=== PATIENT | female | born 1960 | race Caucasian/White ===

== ENCOUNTER 2020-10-25 05:18 | Observation (INO) | payer OTHER ==
[~2020-10-25] VITALS: Ht 172.7 cm; Wt 110.7 kg
[~2020-10-25 05:18] MED LIST: ADVAIR 100-501 EACH INH; AMLODIPINE-BEN1 EAC1 PO; ANTIVERT 25MG T25 MG PO; ATORVASTATIN CA20 MG PO; BASAGLAR K100 UNIT/1 SQ; BENADRYL 25MG C25 MG PO; BENTYL 20MG TAB20 MG PO; CLEOCIN HCL150 MG PO; CYANOCOBAL1000 MCG/1 INJ; CYCLOBENZAPRINE10 MG PO; DOLOBID 500 MG500 MG PO; ECOTRIN81 MG PO; FLEXERIL 10 MG10 MG PO; GABAPENTIN300 MG PO; GENTAMICIN 0.33.5 GM OU; GLUCOPHAGE1000 MG PO; HUMALOG MI100 UNIT/3 SQ; HYDROCODON-ACE1 EAC2 PO; HYDROCODON-ACE1 EAC4 PO; IMDUR ER TAB 3030 MG PO; IPRAT-ALBUT 0.5-3 ML INH; K-DUR TAB 20 M20 MEQ PO; KEFLEX CAP 500500 MG PO; KEFLEX500 MG PO; LASIX80 MG PO; LEVAQUIN TAB 5500 MG PO; LEVAQUIN500 MG PO; LEXAPRO10 MG PO; LOTENSIN40 MG PO; LYRICA100 MG PO; MACROBID 100 M100 M1 PO; MACROBID 100 M100 MG PO; MOTEGRITY2 MG PO; NEURONTIN 100100 MG PO; NEURONTIN 400400 MG PO; NORCO 10-325 T1 EACH PO; NORCO 5-325 TA1 EACH PO; OMEPRAZOLE40 MG PO; OMNICEF 300 MG300 MG PO; PHENERGAN 25 MG25 M1 PO; PHENERGAN25 MG PR; PLAVIX 75 MG TA75 MG PO; PREDNISONE 50 M50 MG PO; PREDNISONE20 MG PO; PROTONIX40 MG PO; PYRIDIUM200 MG PO; REQUIP XL2 MG PO; ROBAXIN-750750 MG PO; TRAZODONE HCL50 MG PO; VICTOZA 3-0.6 MG/0.1 SQ; XANAX1 MG PO; ZANTAC150 MG PO; ZOFRAN ODT 4 MG4 MG PO; ZOFRAN4 MG PO
[2020-10-25 05:37] LABS: RED BLOOD COUNT 3.75 M/UL (4.00-5.10); WHITE BLOOD COUNT 7.6 K/UL (4.5-11.0)
[2020-10-25 06:05] LABS: BUN/CREATININE RATIO 14 (0-10)
[2020-10-26 06:38] LABS: RED BLOOD COUNT 3.72 M/UL (4.00-5.10); WHITE BLOOD COUNT 8.2 K/UL (4.5-11.0)
[2020-10-26 07:08] LABS: BUN/CREATININE RATIO 10 (0-10)
[2020-10-26] MEDS ORDERED: PROTONIX 40 MG40 M1 PO (10:52)
== END 2020-10-26 13:53 | disposition home or self-care (01) ==
LOC: ER1 05:18 → CDU 06:44 → MED SURG 4 14:03
PROVIDERS: Family Medicine; ADMIT Internal Medicine
PROC: 4A023N7 Measurement of Cardiac Sampling and Pressure, Left Heart, Percutaneous Approach (ICD-10-PCS; principal; 2020-10-25)
PROC: B2111ZZ Fluoroscopy of Multiple Coronary Arteries using Low Osmolar Contrast (ICD-10-PCS; 2020-10-25)
PROC: B2151ZZ Fluoroscopy of Left Heart using Low Osmolar Contrast (ICD-10-PCS; 2020-10-25)
DX: R07.89 Other chest pain (principal); I25.2 Old myocardial infarction; I10 Essential (primary) hypertension; E78.5 Hyperlipidemia, unspecified; E11.9 Type 2 diabetes mellitus without complications; E66.01 Morbid (severe) obesity due to excess calories; I25.10 Atherosclerotic heart disease of native coronary artery without angina pectoris; E04.1 Nontoxic single thyroid nodule; Z95.5 Presence of coronary angioplasty implant and graft; Z88.5 Allergy status to narcotic agent; Z88.1 Allergy status to other antibiotic agents; Z20.828 Contact with and (suspected) exposure to other viral communicable diseases
CPT/HCPCS: ECHO; 36415; 71045; 71275; 78452; 80048; 80053; 82550; 82553; 82962; 83690; 83874; 84484; 85025; 85379; 85610; 87635; 93005; 93306; 96374; 99152; 99153; 99285; A9502; C1760; C1769; G0378; J1170; J1644; J2405; J2785; Q9967; U0003

== ENCOUNTER 2021-01-06 20:46 | Emergency (ER) | payer OTHER ==
[~2021-01-06 20:46] MED LIST changes: +PROTONIX 40 MG40 M1 PO
[2021-01-06 21:31] LABS: HEMOGLOBIN 12.7 gm/dl (12.3-15.3); RED BLOOD COUNT 4.12 M/UL (4.00-5.10); WHITE BLOOD COUNT 8.2 K/UL (4.5-11.0)
[2021-01-06 21:55] LABS: BUN/CREATININE RATIO 17 (0-10)
[2021-01-07] MEDS ORDERED: ZOFRAN4 MG PO (00:41)
[2021-01-07] MEDS ORDERED: OMNICEF 300 MG300 MG PO (01:03)
== END 2021-01-07 03:00 | disposition home or self-care (01) ==
LOC: ER1 20:46
PROVIDERS: Physician Assistant
DX: R07.89 Other chest pain (principal); N39.0 Urinary tract infection, site not specified; E11.9 Type 2 diabetes mellitus without complications; J45.909 Unspecified asthma, uncomplicated; Z86.73 Personal history of transient ischemic attack (TIA), and cerebral infarction without residual deficits; Z88.5 Allergy status to narcotic agent; Z88.1 Allergy status to other antibiotic agents; Z86.16 Personal history of COVID-19
CPT/HCPCS: 71045; 80053; 81001; 82550; 82553; 83874; 84484; 85025; 85379; 87086; 93005; 99285; Q9967

== ENCOUNTER 2021-03-11 00:40 | Emergency (ER) | payer OTHER | END 2021-03-11 03:21 | disposition home or self-care (01) | LOC: ER1 00:40 | DX: S63.501A Unspecified sprain of right wrist, initial encounter (principal); S43.401A Unspecified sprain of right shoulder joint, initial encounter; E11.9 Type 2 diabetes mellitus without complications; J45.909 Unspecified asthma, uncomplicated; Z79.4 Long term (current) use of insulin; Z88.5 Allergy status to narcotic agent; Z88.8 Allergy status to other drugs, medicaments and biological substances; W19.XXXA Unspecified fall, initial encounter; Y92.009 Unspecified place in unspecified non-institutional (private) residence as the place of occurrence of the external cause | CPT/HCPCS: 29125; 73060; 73110; 99283 ==

== ENCOUNTER 2021-05-04 11:45 | Inpatient (IN) | payer OTHER ==
[~2021-05-04] VITALS: Ht 172.7 cm; Wt 103.9 kg
[2021-05-04 12:26] LABS: HEMOGLOBIN 12.5 gm/dl (12.3-15.3); RED BLOOD COUNT 3.91 M/UL (4.00-5.10); WHITE BLOOD COUNT 7.4 K/UL (4.5-11.0)
[2021-05-04 13:00] LABS: BUN/CREATININE RATIO 19 (0-10)
[2021-05-04] MEDS ORDERED: HYDROXYZINE HCL25 MG PO (17:30)
[2021-05-05 04:25] LABS: HEMOGLOBIN 12.1 gm/dl (12.3-15.3); RED BLOOD COUNT 3.8 M/UL (4.00-5.10); WHITE BLOOD COUNT 7.6 K/UL (4.5-11.0)
[2021-05-05 04:44] LABS: BUN/CREATININE RATIO 19 (0-10)
[2021-05-05 07:49] LABS: ACINETOBACTER BAUMANNII Not Detected (Negative); CANDIDA ALBICANS Not Detected (Negative); CANDIDA KRUSEI Not Detected (Negative); CANDIDA TROPICALIS Not Detected (Negative); ENTEROCOCCUS Not Detected (Negative); ESCHERICHIA COLI Not Detected (Negative); HAEMOPHILUS INFLUENZAE Not Detected (Negative); KLEBSIELLA OXYTOCA Not Detected (Negative); KLEBSIELLA PNEUMONIAE Not Detected (Negative); KPC-CARBAPENEM-RESISTANCE GENE Not Detected (Negative); PROTEUS Not Detected (Negative); PSEUDOMONAS AERUGINOSA Not Detected (Negative); SERRATIA MARCESANS Not Detected (Negative); STAPHYLOCOCCUS AUREUS Not Detected (Negative); STREP AGALACTIAE (GROUP B) Not Detected (Negative); STREP PYOGENES (GROUP A) Not Detected (Negative); STREPTOCOCCUS Not Detected (Negative); vanA/B (VANCOMYCIN RESIST GENE Not Detected (Negative)
[2021-05-05 10:31] LABS: STAPHYLOCOCCUS DETECTED (Negative); mecA (METHICILLIN RESIST GENE DETECTED (Negative)
[2021-05-06 05:49] LABS: HEMOGLOBIN 12.4 gm/dl (12.3-15.3); RED BLOOD COUNT 3.93 M/UL (4.00-5.10); WHITE BLOOD COUNT 6.9 K/UL (4.5-11.0)
[2021-05-06 06:08] LABS: BUN/CREATININE RATIO 16 (0-10)
[2021-05-07 05:25] LABS: BUN/CREATININE RATIO 18 (0-10)
[2021-05-07] MEDS ORDERED: IPRAT-ALBUT 0.5-3 ML INH (16:57)
== END 2021-05-07 18:25 | disposition home or self-care (01) | DRG 312 ==
LOC: ER1 11:45 → CDU 14:16 → M/S 17:27
PROVIDERS: Emergency Medicine; Physician Assistant Medical; ADMIT Internal Medicine
PROC: B24BZZ4 Ultrasonography of Heart with Aorta, Transesophageal (ICD-10-PCS; principal; 2021-05-04)
DX: R55 Syncope and collapse (principal); I25.10 Atherosclerotic heart disease of native coronary artery without angina pectoris; I10 Essential (primary) hypertension; F43.10 Post-traumatic stress disorder, unspecified; F41.9 Anxiety disorder, unspecified; Z20.822 Contact with and (suspected) exposure to COVID-19; F32.9 Major depressive disorder, single episode, unspecified; R27.0 Ataxia, unspecified; J45.909 Unspecified asthma, uncomplicated; G25.81 Restless legs syndrome; E78.5 Hyperlipidemia, unspecified; Z96.653 Presence of artificial knee joint, bilateral; I08.1 Rheumatic disorders of both mitral and tricuspid valves; E11.42 Type 2 diabetes mellitus with diabetic polyneuropathy; Z86.73 Personal history of transient ischemic attack (TIA), and cerebral infarction without residual deficits; Z79.01 Long term (current) use of anticoagulants; Z79.82 Long term (current) use of aspirin; Z95.5 Presence of coronary angioplasty implant and graft; Z90.710 Acquired absence of both cervix and uterus; Z88.6 Allergy status to analgesic agent; Z88.1 Allergy status to other antibiotic agents; Z88.8 Allergy status to other drugs, medicaments and biological substances; Z82.49 Family history of ischemic heart disease and other diseases of the circulatory system; Z80.0 Family history of malignant neoplasm of digestive organs; Z79.4 Long term (current) use of insulin; Z90.49 Acquired absence of other specified parts of digestive tract
CPT/HCPCS: ECHO; 36415; 36600; 70450; 70551; 71045; 80048; 80053; 80307; 81001; 82550; 82553; 82803; 82962; 83605; 83690; 83735; 83874; 83880; 84439; 84443; 84484; 85025; 85027; 85730; 87040; 87077; 87150; 87186; 93005; 93270; 93306; 93880; 96374; 96375; 97116-GP-CQ; 97162; 99285; G0378; J2550; J2765; J7030; U0002

== ENCOUNTER 2021-08-06 11:45 | Emergency (ER) | payer OTHER ==
[~2021-08-06 11:45] MED LIST changes: +HYDROXYZINE HCL25 MG PO
[2021-08-06 13:14] LABS: RED BLOOD COUNT 4.04 M/UL (4.00-5.10)
[2021-08-06 13:38] LABS: BUN/CREATININE RATIO 13 (0-10)
[2021-08-06] MEDS ORDERED: FLOMAX 0.4 MG0.4 MG PO (16:27)
[2021-08-06] MEDS ORDERED: MACROBID 100 M100 M1 PO (16:27)
== END 2021-08-06 17:19 | disposition home or self-care (01) ==
LOC: ER1 11:45
PROVIDERS: Nurse Practitioner
DX: N20.0 Calculus of kidney (principal); N39.0 Urinary tract infection, site not specified; Z20.822 Contact with and (suspected) exposure to COVID-19
CPT/HCPCS: 80053; 81001; 82550; 82553; 83690; 83874; 84484; 85025; 87077; 87086; 87186; 93005; 96374; 96375; 99284; J0780; J1100; J1200; J7030; Q9965; U0002

== ENCOUNTER 2021-08-23 22:18 | Emergency (ER) | payer OTHER ==
[~2021-08-23 22:18] MED LIST changes: +FLOMAX 0.4 MG0.4 MG PO
[2021-08-23 22:52] LABS: HEMOGLOBIN 13.6 gm/dl (12.3-15.3); RED BLOOD COUNT 4.23 M/UL (4.00-5.10); WHITE BLOOD COUNT 7.4 K/UL (4.5-11.0)
[2021-08-24 00:16] LABS: BUN/CREATININE RATIO 12 (0-10)
[2021-08-24] MEDS ORDERED: OMNICEF 300 MG300 MG PO (02:33)
== END 2021-08-24 03:30 | disposition home or self-care (01) ==
LOC: ER1 22:18
PROVIDERS: Physician Assistant
DX: N39.0 Urinary tract infection, site not specified (principal); R51.9 Headache, unspecified; R20.2 Paresthesia of skin; I25.2 Old myocardial infarction; E78.5 Hyperlipidemia, unspecified; I10 Essential (primary) hypertension; E11.43 Type 2 diabetes mellitus with diabetic autonomic (poly)neuropathy; K31.84 Gastroparesis; I25.10 Atherosclerotic heart disease of native coronary artery without angina pectoris; Z86.73 Personal history of transient ischemic attack (TIA), and cerebral infarction without residual deficits; Z95.5 Presence of coronary angioplasty implant and graft; Z90.710 Acquired absence of both cervix and uterus; Z90.49 Acquired absence of other specified parts of digestive tract; Z88.5 Allergy status to narcotic agent; Z88.6 Allergy status to analgesic agent; Z88.1 Allergy status to other antibiotic agents
CPT/HCPCS: 70450; 71045; 80053; 81001; 82550; 82553; 83690; 83735; 83874; 83880; 84484; 85025; 85610; 85730; 87077; 87086; 87186; 93005; 96374; 99284; J0696; Q9967

== ENCOUNTER 2022-06-17 15:39 | Emergency (ER) | payer OTHER ==
[~2022-06-17 15:39] MED LIST changes: +DOXYCYCLINE HY100 MG PO
[2022-06-17 16:55] LABS: HEMOGLOBIN 13.6 gm/dl (12.3-15.3); RED BLOOD COUNT 4.31 M/UL (4.00-5.10); WHITE BLOOD COUNT 10.1 K/UL (4.5-11.0)
[2022-06-17 17:16] LABS: BUN/CREATININE RATIO 11 (0-10)
== END 2022-06-17 17:03 | disposition home or self-care (01) ==
LOC: ER1 15:39
PROVIDERS: Physician Assistant
DX: R10.31 Right lower quadrant pain (principal); R10.813 Right lower quadrant abdominal tenderness; R10.2 Pelvic and perineal pain; I11.0 Hypertensive heart disease with heart failure; I50.9 Heart failure, unspecified; E11.9 Type 2 diabetes mellitus without complications; Z79.4 Long term (current) use of insulin; E78.5 Hyperlipidemia, unspecified; Z95.5 Presence of coronary angioplasty implant and graft; Z88.5 Allergy status to narcotic agent; Z88.6 Allergy status to analgesic agent; Z88.1 Allergy status to other antibiotic agents
CPT/HCPCS: 80053; 81001; 83690; 85025; 87086; 99283